=== PATIENT | female | born 1990 ===

== ENCOUNTER 2019-10-30 05:48 | Day surgery (SDC) | payer OTHER ==
[2019-10-30] MEDS ORDERED: IBU600 MG PO (08:37)
== END 2019-10-30 18:00 | disposition home or self-care (01) ==
LOC: CIR.AMB 05:48 → ADM 08:15 → CIR.AMB 08:15
PROVIDERS: ATTEND Obstetrics & Gynecology Gynecology
DX: D25.0 Submucous leiomyoma of uterus (principal); N72 Inflammatory disease of cervix uteri